=== PATIENT | female | born 1970 | race Caucasian/White ===

== ENCOUNTER 2017-09-08 16:58 | Emergency (ER) | payer BC, OTHER ==
[2017-09-08 17:23] VITALS: BP 152/99; TEMP 101.8; O2SAT 99
--- NOTE | 2017-09-08 17:44 | ED.PDOC ---
History of Present Illness - General Chief Complaint: General Time Seen by Provider: 09/08/17 17:34 Source: patient Exam Limitations: no limitations - History of Present Illness Initial Comments: Patient complains of three days of runny nose, ear itching, and cough productive of white frothy sputum. She developed a fever of 101.8 last night. No sore throat. No dyspnea. Has been around multiple sick contacts. No other complaints. Timing/Duration: other - 3 days Severity: mild Improving Factors: nothing Worsening Factors: nothing Associated Symptoms: other - as in HPI Allergies/Adverse Reactions: Allergies NO KNOWN ALLERGY Allergy (Verified 09/08/17 17:24) Home Medications: Ambulatory Orders Irbesartan [Avapro] 150 mg PO BID 09/08/17 Review of Systems - Review of Systems Constitutional: States: no symptoms reported EENTM: States: see HPI Respiratory: States: see HPI Cardiology: States: no symptoms reported Gastrointestinal/Abdominal: States: no symptoms reported Genitourinary: States: no symptoms reported Musculoskeletal: States: no symptoms reported Skin: States: no symptoms reported Neurological: States: no symptoms reported Endocrine: States: no symptoms reported Hematologic/Lymphatic: States: no symptoms reported Past Medical History (General) - Patient Medical History Hx Stroke: No Hx Congestive Heart Failure: No Hx Hypertension: Yes Hx Diabetes: No Hx MRSA: No Surgical History: appendectomy, other - Vaccination History Hx Influenza Vaccination: No Hx Pneumococcal Vaccination: No - Social History Hx Tobacco Use: No Family Medical History - Family History Mother Living Status: Still Living Hx Family Hypertension: Yes Hx Family;Other: Hypothyroidism Physical Exam - Physical Exam General Appearance: Alert Eye Exam: bilateral normal Ears, Nose, Throat: normal ENT inspection Neck: non-tender, full range of motion, supple Respiratory: chest non-tender, lungs clear, normal breath sounds Cardiovascular/Chest: normal peripheral pulses, regular rate, rhythm Gastrointestinal/Abdominal: normal bowel sounds, non tender, soft Skin Exam: normal color Lymphatic: no adenopathy Departure - Departure Clinical Impression: Upper respiratory infection Disposition: Discharge to Home or Self Care Condition: Good Departure Forms: ED Discharge - Pt. Copy, ED Discharge - Work Release, Patient Portal Self Enrollment Diet: resume usual diet Activity: increase activity as tolerated Referrals: ANDRES JAMISON DO [Primary Care Provider] - 1-2 Weeks Home Medications: Ambulatory Orders Irbesartan [Avapro] 150 mg PO BID 09/08/17 Additional Instructions: Increase oral fluids. Do not take aspirin or aspirin containing products. You may take over the counter cough and cold medications. Return to your primary doctor or the E.R. for a temperature more than 100.4 for more than 3 days.
== END 2017-09-08 17:50 | disposition home or self-care (01) ==
LOC: ER 16:58
DX: J06.9 Acute upper respiratory infection, unspecified (principal); I10 Essential (primary) hypertension